=== PATIENT | male | born 1980 | race Caucasian/White ===

== ENCOUNTER 2016-10-16 20:27 | Emergency (ER) | payer BC ==
[~2016-10-16] VITALS: Ht 182.9 cm; Wt 88.5 kg
[2016-10-16 20:28] VITALS: BP 135/98
[2016-10-16] MEDS ORDERED: NAPROSYN500 MG PO (21:01)
== END 2016-10-16 21:06 | disposition home or self-care (01) ==
LOC: ER 20:27
DX: S43.51XA Sprain of right acromioclavicular joint, initial encounter (principal); Z98.890 Other specified postprocedural states; W01.0XXA Fall on same level from slipping, tripping and stumbling without subsequent striking against object, initial encounter; Y93.89 Activity, other specified; Y92.89 Other specified places as the place of occurrence of the external cause; Y99.8 Other external cause status